=== PATIENT | female | born 1985 | race Caucasian/White ===

== ENCOUNTER → 2016-12-01 | Outpatient (CLI) | payer BC ==
--- NOTE | 2016-12-01 15:04 | NM ---
EXAMINATION: Nuclear medicine hepatobiliary study (HIDA) with cholecystokinin (calculation of gallbl adder ejection fraction for function). HISTORY: Pain. PROCEDURE: Following intravenous administration of 4.3 mCi of technetium 99m Choletec, dynamic images were ob tained up to one-hour post injection. This is followed by slow intravenous administration of 2.5 mcg of CCK and additional dynamic images were obtained. Gallbladder ejection fraction is calculated. FINDINGS: The initial dynamic images demonstrates clearance of the tracer from the blood pool with the prompt tracer uptake by the liver. By 25 minutes tracer activity is noted in the gallbladder. The post CCK images demonstrates optimal contraction of the gallbladder with ejection fraction of 91 percent (nor mal is equal or more than 35%). Tracer activity is noted in the small intestine following CCK admini stration. IMPRESSION: 1. Patent cystic and common bile ducts. Normal liver function. 2. Normal gallbladder ejection fraction following CCK administration ( 91 %; normal equal or more t chan 35%).
== END ==
LOC: MW.NM 12:43
PROVIDERS: ATTEND Nurse Practitioner Family
DX: R10.11 Right upper quadrant pain (principal); R10.2 Pelvic and perineal pain; K76.0 Fatty (change of) liver, not elsewhere classified
CPT/HCPCS: 78227; A9537; J2805

== ENCOUNTER 2017-04-13 15:24 | Emergency (ER) | payer BC ==
[2017-04-13] MEDS ORDERED: Diphtheria,Pertussis(Acell),Tetanus Vaccine 0.5 ML Syringe IM ONE (15:36)
--- NOTE | 2017-04-13 15:36 | EDM.PDOC ---
ED HPI GENERAL MEDICAL PROBLEM - General Chief Complaint: Bite:Animal, Insect Stated Complaint: DOG BITE Time Seen by Provider: 04/13/17 15:34 Source of Information: Reports: Patient, EMS History Limitations: Reports: No Limitations - History of Present Illness INITIAL COMMENTS - FREE TEXT/NARRATIVE: HISTORY AND PHYSICAL: []31-year-old female who is brought in by EMS with dog bite to her face. Extending from the center of her forehead extending down to the bridge of her nose and above the left eyebrow History of Present Illness: []Patient is not sure what type of dog bit her there was 2 dogs there a lab and a husky. Does not remember when her last tetanus vaccine was given Review of Systems: As per history of present illness and below otherwise all systems reviewed and negative. Past medical history: As per history of present illness and as reviewed below otherwise noncontributory. Surgical history: As per history of present illness and as reviewed below otherwise noncontributory. Social history: No reported history of drug or alcohol abuse. Family history: As per history of present illness and as reviewed below otherwise noncontributory. Physical exam: Alert and oriented female. She is able to answer questions in full sentences no shortness of breath. HEENT: Atraumatic, normocehpalic, pupils reactive, negative for conjunctival pallor or scleral icterus, mucous membranes moist, throat clear, neck supple, nontender, trachea midline. Lungs: Clear to auscultation, breath sounds equal bilaterally, chest non tender. Heart: S1S2, regular, negative for clicks, rubs, or JVD. Abdomen: Soft, nondistended, nontender. Negative for masses or hepatossplenmegaly. Negative for costovertebral tenderness. Pelvis: Stable nontender. Genitourinary: Deferred. Rectal: Deferred Extremities: Atraumatic, negative for cords or calf pain. Neurovascular unremarkable. Neuro: Awake, alert, oriented. Cranial nerves II through XII unremarkable. Cerebellum unremarkable. Motor and sensory unremarkable throughout. Exam nonfocal. Dr. Coffman has been notified of the facial lacerations from dog bite. She is here seen this patient and suturing her laceration. Diagnostics: [] Therapeutics: []Sutures placed. Dr. Tata Coffman Impression: Dog bite with laceration[] Plan: []Discharged to home Clindamycin by mouth Hydrocodone Follow-up with Dr. Van's office Tuesday morning as directed Definitive disposition and diagnosis as appropriate pending reevaluation and review of above. Onset: Today, Sudden Head Pain Score (Numeric/FACES): 8 - Related Data Allergies Allergy/AdvReac Type Severity Reaction Status Date / Time Cephalosporins Allergy Anaphylactic Verified 04/13/17 15:26 Shock Penicillins Allergy Anaphylactic Verified 04/13/17 15:26 Shock Home Meds: Home Meds Clindamycin HCl [Cleocin HCl] 300 mg PO TID #30 capsule 04/13/17 [Rx] Past Medical History HEENT History: Reports: None Cardiovascular History: Reports: None Respiratory History: Reports: None Gastrointestinal History: Reports: None Genitourinary History: Reports: None DISINTEGRATOR History: Reports: None Musculoskeletal History: Reports: None Neurological History: Reports: None Psychiatric History: Reports: None Endocrine/Metabolic History: Reports: None Hematologic History: Reports: None Immunologic History: Reports: None Oncologic (Cancer) History: Reports: None Dermatologic History: Reports: None - Past Surgical History Head Surgeries/Procedures: Reports: None HEENT Surgical History: Reports: Adenoidectomy, Tonsillectomy Cardiovascular Surgical History: Reports: None GI Surgical History: Reports: None Female Surgical History: Reports: None Endocrine Surgical History: Reports: None Neurological Surgical History: Reports: None Musculoskeletal Surgical History: Reports: None Dermatological Surgical History: Reports: None Social & Family History - Family History Family Medical History: Noncontributory - Tobacco Use Smoking Status *Q: Never Smoker - Caffeine Use Caffeine Use: Reports: Coffee - Recreational Drug Use Recreational Drug Use: No ED ROS GENERAL - Review of Systems Review Of Systems: ROS reveals no pertinent complaints other than HPI. ED EXAM, ANIMAL BITE - Physical Exam Exam: See Below (See dictation) Course - Vital Signs Last Recorded V/S: Last Vital Signs Temp 37.0 C 04/13/17 15:26 Pulse 91 04/13/17 15:26 Resp 18 04/13/17 15:26 BP 154/103 H 04/13/17 15:26 Pulse Ox 95 04/13/17 15:26 - Orders/Labs/Meds Orders: Active Orders 24 hr Category Date Time Status Vaccines to be Administered [RC] PER UNIT ROUTINE Care 04/13/17 15:36 Active Bacitracin [Bacitracin Oint 1 GM] Med 04/13/17 16:36 Once 1 dose TOP ONETIME ONE Clindamycin Phosphate in D5W [Cleocin in D5W] 300 mg Med 04/13/17 16:15 Active Premix Bag 1 bag IV ONETIME Medication Orders Clindamycin Phosphate 300 mg/ (Premix) 50 mls @ 100 mls/hr IV ONETIME ONE Stop: 04/13/17 16:44 Last Admin: 04/13/17 16:07 Dose: 100 mls/hr Meds: Medications Generic Name Dose Route Start Last Admin Trade Name Freq PRN Reason Stop Dose Admin Clindamycin Phosphate 300 mg/ 50 mls @ 100 mls/hr 04/13/17 16:15 04/13/17 16: 07 Premix IV 04/13/17 16:44 100 mls/hr ONETIME ONE Administration Discontinued Medications Generic Name Dose Route Start Last Admin Trade Name Freq PRN Reason Stop Dose Admin Diphtheria/Tetanus/Acell Pertussis 0.5 ml 04/13/17 15:36 04/13/17 16:06 Adacel IM 04/13/17 15:37 0.5 ml .ONCE ONE Administration Clindamycin Phosphate 300 mg/ 52 mls @ 100 mls/hr 04/13/17 15:37 Sodium Chloride IV 04/13/17 16:08 ONETIME ONE Lidocaine/Epinephrine 20 ml 04/13/17 15:38 Xylocaine 1% With Epinephrine 1:100,000 INJECT 04/13/17 15:39 ONETIME ONE Ondansetron HCl 4 mg 04/13/17 15:37 04/13/17 16:06 Zofran IVPUSH 04/13/17 15:38 4 mg ONETIME ONE Administration Departure - Departure Time of Disposition: 16:39 Disposition: Home, Self-Care 01 Condition: Good Clinical Impression: Dog bite of forehead Qualifiers: Encounter type: initial encounter Qualified Code(s): S01.85XA - Open bite of other part of head, initial encounter; W54.0XXA - Bitten by dog, initial encounter - Discharge Information Prescriptions: Clindamycin HCl [Cleocin HCl] 300 mg PO TID #30 capsule Instructions: Animal Bite, [id number] Forms: ED Department Discharge Additional Instructions: The following information is given to patients seen in the emergency department who are being discharged to home. This information is to outline your options for follow-up care. We provide all patients seen in our emergency department with a follow-up referral. The need for follow-up, as well as the timing and circumstances, are variable depending upon the specifics of your emergency department visit. If you don't have a primary care physician on staff, we will provide you with a referral. We always advise you to contact your personal physician following an emergency department visit to inform them of the circumstance of the visit and for follow-up with them and/or the need for any referrals to a consulting specialist. The emergency department will also refer you to a specialist when appropriate. This referral assures that you have the opportunity for followup care with a specialist. All of these measure are taken in an effort to provide you with optimal care, which includes your followup. Under all circumstances we always encourage you to contact your private physician who remains a resource for coordinating your care. When calling for followup care, please make the office aware that this follow-up is from your recent emergency room visit. If for any reason you are refused follow-up, please contact the [facility] emergency department at and asked to speak to the emergency department charge nurse. Please follow-up as directed with Dr. Augustus TONEY [facility] - Plastic Surgery [address], [address] [place] [address] While in the emergency room you were given IV clindamycin Prescriptions have been sent to [place] pharmacy Any questions or concerns worsening of symptoms please return for further evaluation - My Orders Last 24 Hours: My Active Orders 04/13/17 15:36 Vaccines to be Administered [RC] PER UNIT ROUTINE 04/13/17 16:15 Clindamycin Phosphate in D5W [Cleocin in D5W] 300 mg Premix Bag 1 bag IV ONETIME 04/13/17 16:36 Bacitracin [Bacitracin Oint 1 GM] 1 dose TOP ONETIME ONE - Assessment/Plan Last 24 Hours: My Active Orders 04/13/17 15:36 Vaccines to be Administered [RC] PER UNIT ROUTINE 04/13/17 16:15 Clindamycin Phosphate in D5W [Cleocin in D5W] 300 mg Premix Bag 1 bag IV ONETIME 04/13/17 16:36 Bacitracin [Bacitracin Oint 1 GM] 1 dose TOP ONETIME ONE
[2017-04-13] MEDS ORDERED: Ondansetron 4 MG/2 ML SDV IVPUSH ONE (15:37)
[2017-04-13] MEDS ORDERED: Lidocaine 1% with EPINEPHrine 1:100,000 20 ML MDV INJECT ONE (15:38)
[2017-04-13] MEDS ORDERED: Clindamycin Phosphate in D5W 300 MG in Premix Bag 1 BAG IV ONE ×2 (16:15)
[2017-04-13] MEDS ORDERED: Bacitracin Oint 1 GM U/D Packet TOP ONE (16:36)
[2017-04-13 17:24] VITALS: BP 128/82
--- NOTE | 2017-04-18 14:30 | PCM.OPNOTE ---
- General Post-Op/Procedure Note Date of Surgery/Procedure: 04/13/17 Operative Procedure(s): intermediate repair of forehead laceration total length of 6cm. Pre Op Diagnosis: dog bite to face Anesthesia Technique: Local Primary Surgeon: Marielena Coffman Complications: None Condition: Good
--- NOTE | 2017-04-18 20:34 | OR ---
SURGEON: OSMAN SANCHEZ MD DATE OF PROCEDURE: 04/13/2017 PREOPERATIVE DIAGNOSIS: Laceration of forehead from dog bite. POSTOPERATIVE DIAGNOSIS: Laceration of forehead from dog bite. PROCEDURE: Intermediate repair, forehead laceration, total length of 6 cm. PAIL TESTER: None. INDICATIONS: Ms. Garcia is a 31-year-old female with forehead laceration from a dog bite. Risks and benefits of irrigation and repair here in the emergency room were discussed with her, and she was in agreement to proceed. Risks were including, but not limited to bleeding, infection, damage to underlying or overlying structures, possible need for future interventions, and possible scarring. PROCEDURE IN DETAIL: After informed consent was obtained and placed on the chart, the patient was placed in a supine position in the emergency room. Local anesthesia had been infiltrated while the patient was sitting in the spare room. Once laid back in the supine position, the area was copiously irrigated, wound edges were trimmed, and meticulous hemostasis was ensured. Once adequately hemostased, deep 5-0 Monocryl stitches were used in an interrupted fashion for the deep dermis, and the skin was closed using running bursts of 6-0 Prolene. She tolerated this well after meticulous wound irrigation and debridement. Wound was dressed with bacitracin. FOLLOWUP INSTRUCTIONS: The patient tolerated this well and was discharged with pain medication and antibiotics. She is allergic to penicillins and thus was placed on clindamycin. She will call if any concerns in the future. Otherwise, we will see her in approximately 1 week for suture removal. HEGGTHE / MODL /[id number]
== END 2017-04-13 17:21 | disposition home or self-care (01) ==
LOC: MW.ED 15:24
DX: S01.81XA Laceration without foreign body of other part of head, initial encounter (principal); Z98.890 Other specified postprocedural states; Z88.0 Allergy status to penicillin; Z88.1 Allergy status to other antibiotic agents; Z23 Encounter for immunization; W54.0XXA Bitten by dog, initial encounter
CPT/HCPCS: 12053; 90471; 90715; 96365; 96375; 99283; J2405